=== PATIENT | female | born 1985 | race Caucasian/White ===

== ENCOUNTER 2022-04-15 07:22 | Outpatient (CLI) | payer OTHER, SELFPAY ==
--- NOTE | 2022-04-15 07:15 | CRLHL7_ITS ---
For Patients: As a result of the Cures Act, medical imaging exams and procedure reports are released immediately into your electronic medical record. You may view this report before your referring provider. If you have questions, please contact your health care provider. INDICATION: First trimester scan, establish dates. COMPARISON: None. TECHNIQUE: Real-time esqueda-scale imaging of the pelvis was performed. FINDINGS: Sonographic imaging demonstrates a single living intrauterine gestation. The embryo demonstrates a regular cardiac rate measuring 152 beats per minute. The embryo`s crown-rump length measurement of 5.2 cm corresponds to a gestational age of 11 weeks 6 days with a sonographic due date of 10/29/2022. There is a normal-appearing yolk sac. There are no gross abnormalities noted within the embryo at this early state of development. The gestational sac has a normal appearance. There is no evidence of a perigestational hemorrhage. The amount of fluid within the sac appears appropriate for gestational age. The cervix is closed. The myometrium appears normal. The ovaries are of normal size. Corpus luteal cyst on the right. There are no suspicious fluid collections noted in the cul-de-sac. IMPRESSION: Normal first trimester OB ultrasound exam. Gestational age calculated at 11 weeks 6 days with a sonographic due date of 10/29/2022. Dictated by Krzysztof Flanagan MD @ 04/15/2022 9:39:00 AM (Electronically Signed)
== END 2022-04-15 07:23 | disposition home or self-care (01) ==
PROVIDERS: Visit Provider Registered Nurse
DX: O09.521 Supervision of elderly multigravida, first trimester (principal); Z3A.11 11 weeks gestation of pregnancy
CPT/HCPCS: 76801; 82565; 82570; 84156; 84450; 84460; 84520; 86592; 86703; 86762; 86787; 86803; 86850; 86900; 86901; 87086; 87340; 87491; 87591

== ENCOUNTER 2022-06-10 13:26 | Outpatient (CLI) | payer OTHER, SELFPAY | END 2022-06-10 13:27 | disposition home or self-care (01) | LOC: US 13:26 | PROVIDERS: Visit Provider Pediatrics Neonatal-Perinatal Medicine | DX: O09.522 Supervision of elderly multigravida, second trimester (principal); Z3A.19 19 weeks gestation of pregnancy | CPT/HCPCS: 76811 ==

== ENCOUNTER 2022-07-01 14:15 | Outpatient (CLI) | payer OTHER, SELFPAY | END 2022-07-01 14:16 | disposition home or self-care (01) | LOC: FRMREF 14:15 | PROVIDERS: Visit Provider Advanced Practice Midwife | DX: Z34.92 Encounter for supervision of normal pregnancy, unspecified, second trimester (principal); Z3A.22 22 weeks gestation of pregnancy | CPT/HCPCS: 87086 ==

== ENCOUNTER 2022-08-06 10:35 | Outpatient (CLI) | payer OTHER, SELFPAY | END 2022-08-06 10:36 | disposition home or self-care (01) | LOC: NFLDREF 08-08 03:42 | PROVIDERS: PCP Registered Nurse; Referring Provider Registered Nurse; Visit Provider Registered Nurse | DX: O24.419 Gestational diabetes mellitus in pregnancy, unspecified control (principal); Z3A.28 28 weeks gestation of pregnancy | CPT/HCPCS: 86592 ==

== ENCOUNTER 2022-10-02 08:08 | Outpatient (CLI) | payer OTHER, SELFPAY ==
--- NOTE | 2022-10-02 08:15 | CRLHL7_ITS ---
For Patients: As a result of the Century Cures Act, medical imaging exams and procedure reports are released immediately into your electronic medical record. You may view this report before your referring provider. If you have questions, please contact your health care provider. INDICATION: Gestational diabetes TECHNIQUE: Real time esqueda scale imaging of the fetus was performed. COMPARISON: 09/03/2022 FINDINGS: Sonographic imaging demonstrates a single living intrauterine gestation. Fetus demonstrates a regular cardiac rate of 122 beats per minute. Fetus has a vertex position. The placenta lies anteriorly. Amniotic fluid volume appears normal and there is a single deepest pocket of 6.4 cm. The estimated weight is 3297gm which lies at the 90th %. On the prior OB ultrasound dated 09/03/2022 the estimated weight was at the 83rd percentile. The right renal pelvis measures 8 millimeters. BPD 89th percentile. HC 90th percentile. AC 95th percentile. FL 60th percentile. The fetus was active and demonstrated normal breathing movements. There was normal flexion and extension of the trunk and extremities. IMPRESSION: Normal biophysical profile score 8/8. Sonographic gestational age 37 weeks 6 days and sonographic due date 10/17/2022. Sonographic age 12 days ahead of the clinical age. Estimated weight 90th percentile. Abdominal circumference 95th percentile. Right renal pelviectasis measuring 8 millimeters. Less than 7 mm is considered normal in the 3rd trimester. follow-up recommended. Dictated by Krzysztof Flanagan MD @ 10/03/2022 6:25:05 AM (Electronically Signed)
== END 2022-10-02 08:09 | disposition home or self-care (01) ==
LOC: US 08:09
PROVIDERS: PCP Registered Nurse; Visit Provider Obstetrics & Gynecology
DX: O24.419 Gestational diabetes mellitus in pregnancy, unspecified control (principal); Z3A.37 37 weeks gestation of pregnancy
CPT/HCPCS: 76816; 76819; 87081; 87653

== ENCOUNTER 2022-10-07 09:18 | Outpatient (CLI) | payer OTHER, SELFPAY ==
[2022-10-07] VITALS (8 sets, daily range): BP systolic 132–152; BP diastolic 70–84; PULSE 75–84
[2022-10-07 09:57] LABS: Hematocrit 34.6 % (33.0-51.0); Hemoglobin* 11.3 gm/dL (12.0-16.0); Mean Corpuscular HGB Conc 33 gm/dL (32-36); Mean Corpuscular Hemoglobin 29 pg (26-34); Mean Corpuscular Volume 89 fL (80-100); Platelet Count* 197 K/uL (140-440); White Blood Count* 6.25 K/uL (4.50-11.00)
[2022-10-07 10:00] LABS: Slide Review Reflex No
[2022-10-07 10:27] LABS: Alanine Aminotransferase* 16 U/L (4-35); Aspartate Amino Transferase* 20 U/L (12-35); Blood Urea Nitrogen* 10 mg/dL (5-24); Creatinine* 0.5 mg/dL (0.5-1.5); Estimated Glomerular Filt Rate 124 ml/min
[2022-10-07 12:19] LABS: Total Protein Urine 12 mg/dL
[2022-10-07 12:20] LABS: Creatinine Urine 102.8 mg/dL
--- NOTE | 2022-10-07 15:16 | PC.OBNST ---
NST Note NST Note Start: 10/07/22 09:25 Freq: ONCE Status: Active Protocol: Document 10/07/22 11:50 IKE (Rec: 10/07/22 15:16 IKE [id number]) NST Note 5 Para (# of births) 4 EDC 10/29/22 Gestational Age In Weeks & Days 36 Weeks & 6 Days High Risk Factors High Blood Pressure - Gestational,Diabetes - Gestational Diet Controlled, Advanced Maternal Age Patient Presented with Complaint(s) of Other Other Complaints Elevated BP in clinic Reactive Yes Appropriate for Gestational Age Yes Adam Ken RN Date 10/07/22 Reactive Yes Appropriate for Gestational Age Yes Arian Horton RNC Date 10/07/22 OB NST charge Yes Complete NST Note via Write Note Yes The provider's electronic signature indicates the NST is reactive/appropriate for gestational age. *Note to provider: If an addendum is required, open the patient's chart and click on the note under the Nurse/Allied Health tab.
== END 2022-10-07 12:10 | disposition home or self-care (01) ==
LOC: OB OUT 09:19 → OB 09:21
PROVIDERS: PCP Registered Nurse; Visit Provider Obstetrics & Gynecology
DX: O13.3 Gestational [pregnancy-induced] hypertension without significant proteinuria, third trimester (principal); O24.419 Gestational diabetes mellitus in pregnancy, unspecified control; Z3A.36 36 weeks gestation of pregnancy
CPT/HCPCS: 36415; 59025; 76815; 82565; 82570; 84156; 84450; 84460; 84520; 85027; 99213

== ENCOUNTER 2022-10-07 19:15 | Inpatient (IN) | payer OTHER, SELFPAY ==
[2022-10-07 19:30] VITALS: RESP 16; TEMP 36.9
[2022-10-07 19:31] VITALS: BP 134/76; PULSE 82
--- NOTE | 2022-10-07 19:32 | PM.OBHPLI ---
OB - H&P: HPI Labor/Induction History of Present Illness Date Seen: 10/07/22 Chief Complaint: Gestational hypertension without severe features, unfavorable cervix, 36 6/7 weeks gestation. Chief complaint: IOL/HTN : 5 Para: 4 Indications for induction: induced hypertension Narrative: The patient is a 37 year old 5 para 4004 at 36 6/7 weeks gestation by early ultrasound, who presents for cervical ripening and labor induction secondary to gestational hypertension without severe features. She was seen in the [facility] today and found to have elevated blood pressure. This is her 2nd documented visit with significantly elevated blood pressure. She was sent to the center for monitoring and laboratory evaluations. Labs were normal. Blood pressure was elevated again. NST was reactive and reassuring. Her Joshua score was found to be unfavorable, so cervical ripening was recommended, with induction of labor to follow tomorrow. Induction of labor methods and cervical ripening methods were reviewed. The patient expressed a preference to do vaginal misoprostol tonight. OB PROBLEM LIST: EMANUEL : Rodney. Children (4 boys): Jt Blake, Rylan Hernandez and Ramone. Baby: Vesta gender. Conceived while on OCPs 1. AMA MaterniT 21: Negative Level 2 FAS: Normal. 2. H/o pre E Recommended daily baby aspirin starting at 12 weeks Baseline preeclampsia labs: P/C 0.00, Creat 0.4 (L), AST 18, ALT 16, BUN 10 Repeat labs on 09/17: hgb 11.7, plts 209, creat 0.4, BUN 11, AST 21, ALT 16. Urine P/C: 0.00. Labs 09/23/2022: hgb 11.9, plts 219, creat 0.4, BUN 9, AST 20, ALT 16. Urine P/C 0.3. 24hr protein: 259mg 3. H/o GDMA1 and GDMA1 in this see #7. Hemoglobin A1c: 5.3 Discussed recommendation for early glucose testing at 16-20 weeks. Patient did blood sugar testing and followed a GDM diet rather that doing an early 1hr GTT. Discussed checking for 1-2 weeks at 20 weeks and (if she passes) checking again at 28 weeks. Declined health economist referral. 4. Anxiety H/o PP anxiety after last baby was born. On 50mg Sertraline at her first visit. Increased to 75mg QD at her first visit. Increased to 100mg QD at 23 weeks. Patient increased to 150mg prior to 28 week visit. 5. Obesity. BMI 37.0 Weekly NST starting at 37wks 6. Migraine w/o aura 7. Gestational diabetes: diet controlled. Blood sugars reviewed at 23 weeks, elevated with high carb meals, agrees to diagnosis. USN for EFW q4 weeks 32 wks 09/03/22: Vtx, SDP: 7.2cm. EFW 2188 g, 4 lb 13 oz, 83%. BPD 80%, HC 78%, AC 91%, FL 47% 36 wks (& BPP due to BMI 37.0): Vertex, SDP 6.4cm. BPP /. EFW 3297g, 7lb 4 oz, 90%. BPD 89%, HC 90%, AC 95%, FL 60% Recommend delivery between 39.0- 40.6. 8. ED visit due to sudden onset SOB of September 15. EKG reassuring, elevated D-dimer, CT scan showed no PE, lower extremity Dopplers showed no DVT. Flu: completed Covid: completed and boosted x1; rec. bivalent booster History of Present Dating criteria: based on 1st trimester US only care: good care Ultrasounds: normal 1st trimester US and normal mid trimester US complications: gestational diabetes and gestational hypertension Medical complications: psychiatric (Anxiety) Labs Blood type: O (+) positive Rubella: immune RPR/VDLR: nonreactive GBS status: negative HBsAG: negative Review of Systems Status of ROS: Reports: 10 or more systems reviewed and unremarkable except as noted in History and below Meds Home Medications and Allergies Home Medications Medication Instructions Recorded Confirmed Type docosahexaenoic acid 200 mg mg PO 04/15/22 10/07/22 History capsule ( DHA) aspirin 81 mg tablet,delayed 81 mg PO QDAY 09/23/22 10/07/22 History release Allergies Allergy/AdvReac Type Severity Reaction Status Date / Time No Known Drug Allergies Allergy Verified 10/07/22 08:41 OB - H&P: Exam Physical Exam: Vital signs: Pulse BP 82 134/76 10/07/22 19:31 10/07/22 19:31 Narrative: See exam documented during clinic visit [facility] the [facility] today, 10/07/2022. Detailed Labor and Delivery Exam: Dilation (cm): 1 Effacement (%): 50 Cervix position: posterior Consistency: soft Fetus (Single): Station: -4 Heart Rate Baseline: 120 Monitor Decelerations: None Hourly Shift Variability: Moderate (6-25) OB - Problem Based A/P Additional Plan (1) Gestational hypertension: Problem details: Without severe features Status: Acute (2) Gestational diabetes: Status: Acute Delivery/Labor/Induction Plan Induction method: per misoprostol protocol (Vaginal misoprostol)
[2022-10-07 19:39] VITALS: BMI 40.0
[2022-10-07] MEDS: ACETAMINOPHEN 500 MG TABLET 1000 MG PO (20:40)
[2022-10-07] MEDS: miSOPROStoL 25 MCG/0.25 TABLET VAGINAL ×2 (20:50→23:55)
[2022-10-07 21:06] VITALS: BP 120/68; PULSE 74
[2022-10-07 21:07] VITALS: RESP 16
[2022-10-08] VITALS (44 sets, daily range): BP systolic 108–142; BP diastolic 55–86; PULSE 60–90; RESP 15–16; TEMP 36.6–37.1; O2SAT 98–99
[2022-10-08] MEDS: ACETAMINOPHEN 500 MG TABLET 1000 MG PO ×2 (03:38→23:35)
[2022-10-08] MEDS: miSOPROStoL 25 MCG/0.25 TABLET VAGINAL ×2 (04:35→07:39)
[2022-10-08] MEDS: LACTATED RINGERS 1000 ML 1,000 ML 999 ML IV (12:22)
[2022-10-08] MEDS: ROPIVACAINE 0.2 % PF 10 ML INJ 20 MG EPIDURAL (12:48)
[2022-10-08] MEDS: ROPIVACAINE 0.2% 100 ml 100 ML 12 MG EPIDURAL (12:48)
--- NOTE | 2022-10-08 12:59 | P.ANBPRC_ITS ---
[facility] Medical History Mild episode of recurrent major depressive disorder ?F33.0 - Major depressive disorder, recurrent, mild (ICD-10) Migraine ?G43.909 - Migraine, unspecified, not intractable, without status migrainosus (ICD-10) History of pre-eclampsia ?Z87.59 - Personal history of other complications of , childbirth and the puerperium (ICD-10) History of gestational hypertension ?Z87.59 - Personal history of other complications of , childbirth and the puerperium (ICD-10) History of gestational diabetes mellitus (GDM) ?Z86.32 - Personal history of gestational diabetes (ICD-10) Surgical History History of tonsillectomy ?Z90.89 - Acquired absence of other organs (ICD-10) History of cholecystectomy ?Z90.49 - Acquired absence of other specified parts of digestive tract (ICD- 10) History of appendectomy ?Z90.49 - Acquired absence of other specified parts of digestive tract (ICD- 10) Family History Maternal Grandmother Thyroid disease Breast cancer Osteoporosis Aunt Thyroid disease Mother Osteoporosis Other Family history of lactose intolerance Social History Narrative: Nonsmoker. No illicit drug use. No EtOH. What is your current living situation: I presently have a place to live Problems where you live: no known problems In the past 12 months, utilities in danger of being shut off: no In the past 12 mos, have been you worried that your food would run out before you had money to buy more?: never true In the past 12 mos, the food you bought just didn't last and you didn't have money to buy more?: never true Smoking Status: Never smoker Non-prescribed substance use: denies use How often does anyone, including family, friends and others, physically hurt you : How often does anyone, including family, friends and others, insult or talk down to you: How often does anyone, including family, friends and others, threaten you with harm: How often does anyone, including family, friends and others, scream or curse at you: Little interest or pleasure in doing things: not at all Feeling down, depressed, or hopeless: not at all Meds Home Medications and Allergies Home Medications Medication Instructions Recorded Confirmed Type docosahexaenoic acid 200 mg 200 mg PO DAILY 04/15/22 10/07/22 History capsule ( DHA) aspirin 81 mg tablet,delayed 81 mg PO QDAY 09/23/22 10/07/22 History release Allergies Allergy/AdvReac Type Severity Reaction Status Date / Time No Known Drug Allergies Allergy Verified 10/07/22 08:41 Results Labs Labs: Laboratory Results - last 24 hr 10/07/22 22:10 WBC Cancelled Corrected WBC Cancelled RBC Cancelled Hgb Cancelled Hct Cancelled MCV Cancelled MCH Cancelled MCHC Cancelled RDW Coeff of Radha Cancelled Plt Count Cancelled Neut % (Auto) Cancelled Lymph % (Auto) Cancelled Baldwin % (Auto) Cancelled Eos % (Auto) Cancelled Baso % (Auto) Cancelled Neut # (Auto) Cancelled Lymph # (Auto) Cancelled Baldwin # (Auto) Cancelled Eos # (Auto) Cancelled Baso # (Auto) Cancelled Blood Type O Positive Antibody Screen NEGATIVE Vital Signs Vital Signs: Last Vital Signs Temp 98.7 F 10/08/22 09:45 Pulse 86 10/08/22 12:57 Resp 16 10/08/22 09:45 BP 137/74 10/08/22 12:57 Pulse Ox 99 10/08/22 12:47 Weight: 115.984 kg Height: 170.18 cm Anesthesia Procedures Epidural Insertion Patient Location: OB Start Time: 12:30 Stop Time: 13:30 Start Date: 10/08/22 Stop Date: 10/08/22 Reason for Block: procedure for pain Patient Position: sitting Performed By: Thony Merritt Preanesthetic Checklist: IV checked, risks and benefits discussed, monitors and equipment checked and anesthesia consent Prep: chlorhexidine gluconate Monitoring: blood pressure monitoring, continuous pulse oximetry and heart rate Approach: midline Vertebral Space: lumbar (1-5) Epidural Technique: HUYEN saline Needle Type: Tuohy needle Injection Technique: continuous catheter Needle gauge: 17 Needle Insertion Depth (cm): 10 Catheter Gauge: 19 Catheter Type: multi-orifice Catheter at skin depth (cm): 14 Test Dose Result: negative and lidocaine 1.5% with epinephrine 1 to 200,000
[2022-10-08] MEDS: LACTATED RINGERS 1000 ML 1,000 ML 125 ML IV (13:27)
[2022-10-08] MEDS: OXYTOCIN 30 unit/500 ML in NS 30 UNIT/500 ML BAG 300 UNIT IVPB (15:15)
--- NOTE | 2022-10-08 17:13 | W.PM.OBVAGDE ---
OB Procedure Vag Delivery Mother Details Mother Details: The patient is a 37 year-old, 5, Para 5, admitted on 10/07/22 at 37.0Days gestation for IOL due to GHTN. : 5 Para: 5 Weeks Gestation: 37.0 Admission Date: 10/07/22 Additional Details Amniotic Membrane Status: AROM Amniotic Membrane Rupture Date: 10/08/22 Amniotic Membrane Rupture Time: 12:10 Amniotic Membrane Fluid Description: Clear Analgesia/Anesthesia Type: Epidural Waterbirth: No Pitcoin: No Intrapartal Events: Labor Induction Induction Method: per misoprostol protocol Delivery augmentation: rupture of membranes Labor Onset: 08:00 Complete: 14:55 Pushin:58 Heart: heart tones during second stage were category 2. Delivery Details Delivery Date: 10/08/22 Delivery Time: 15:18 Route of delivery: Gender: Male Infant Viability: Alive; Heart Rate Present Position at Delivery: OA Delivery Details: Delivered over intact perineum via spontaneous vaginal delivery. was placed on maternal abdomen.? Cord was clamped and cut after a 30-60 second delay. Nose and mouth were bulb suctioned.? weight 6 lb 6 oz. 1 Minute Interval Total Score: 8 5 Minute Interval Total Score: 8 Additional Details Shoulder Dystocia: No Placenta Delivery Time: 15:24 Placental Delivery Description: Spontaneous Delivery repair: Vicryl Procedure Done: Global Blood Loss: 50 Laceration: Perineal - 1st Degree Episiotomy Description: None Blood Loss Measurement Type: QBL Bakri Used: No Sponge/Need Count Correct: No Cord Vessel Description: 3 Vessels, Nuchal Cord and Reduced Event Summary Status: Mother and infant were stable after delivery. Disposition: floor
[2022-10-08] MEDS: IBUPROFEN 600 MG TABLET PO (20:33)
[2022-10-09] VITALS (7 sets, daily range): BP systolic 122–142; BP diastolic 77–86; PULSE 62–84; RESP 16–18; TEMP 36.3–36.9; O2SAT 95–98
[2022-10-09] MEDS: IBUPROFEN 600 MG TABLET PO ×2 (02:36→17:18)
[2022-10-09] MEDS: DOCUSATE SODIUM 100 MG CAPSULE PO ×2 (02:36→11:03)
[2022-10-09 06:36] LABS: Hemoglobin* 10.4 gm/dL (12.0-16.0)
--- NOTE | 2022-10-09 07:47 | PM.OBDSVD1 ---
DS: Providers Provider Time Seen by Provider: 07:47 Date Seen: 10/09/22 Date of admission: 10/07/22 19:15 Primary care physician: Smitha Herrmann CNP Admitting Clinician: Sharon Quan MD Attending Physician on discharge: Sharon Quan MD Date of Discharge: 10/09/22 DS: Diagnosis Discharge Diagnosis (1) NVD (normal vaginal delivery): Status: Acute (2) Lactating mother: Status: Acute (3) Gestational hypertension: Status: Acute Problem details: Without severe features (4) Gestational diabetes: Status: Acute (5) Anxiety and depression: Status: Acute Exam Narrative: Exam Narrative: VSS, afebrile GENERAL APPEARANCE: ?normal affect, alert, no distress MOOD: ?appropriate HEENT: normocephalic, neck supple, full ROM CHEST: ?Symmetrical chest wall movement. ?Normal respiratory effort. ?Clear to auscultation HEART: ?regular rate and rhythm ABDOMEN: ?soft, non-tender. Uterine fundus is firm, 1 below Umbilicus, Midline and is appropriate for the stage of recovery. ?Bowel sounds present. PERINEUM: ?mild edema of the perineum, there is a 1st degree laceration that is healing well. EXTREMITIES: ?normal and +1 edema Const: Vital Signs, click to edit/add: Vital Signs - 24 hr 10/08/22 09:45 10/08/22 11:05 10/08/22 12:37 Temperature 98.7 F Pulse Rate 68 Pulse Rate [Blood Pressure Cuff] Respiratory Rate 16 Blood Pressure 132/78 Blood Pressure [Le ft Arm] Pulse Oximetry 98 Oxygen Delivery Vt thod 10/08/22 12:42 10/08/22 12:45 10/08/22 12:47 Temperature Pulse Rate 75 81 Pulse Rate [Blood Pressure Cuff] Respiratory Rate Blood Pressure 139/69 139/69 Blood Pressure [Le ft Arm] Pulse Oximetry 98 99 Oxygen Delivery Vt thod 10/08/22 12:49 10/08/22 12:51 10/08/22 12:53 Temperature Pulse Rate 85 89 81 Pulse Rate [Blood Pressure Cuff] Respiratory Rate Blood Pressure 137/69 142/77 H 135/74 Blood Pressure [Le ft Arm] Pulse Oximetry Oxygen Delivery Vt thod 10/08/22 12:55 10/08/22 12:57 10/08/22 12:59 Temperature Pulse Rate 81 86 78 Pulse Rate [Blood Pressure Cuff] Respiratory Rate Blood Pressure 138/72 137/74 142/67 H Blood Pressure [Le ft Arm] Pulse Oximetry Oxygen Delivery Vt thod 10/08/22 13:01 10/08/22 13:03 10/08/22 13:05 Temperature Pulse Rate 79 81 83 Pulse Rate [Blood Pressure Cuff] Respiratory Rate Blood Pressure 138/64 138/65 136/64 Blood Pressure [Le ft Arm] Pulse Oximetry Oxygen Delivery Vt thod 10/08/22 13:07 10/08/22 13:09 10/08/22 13:11 Temperature Pulse Rate 74 79 74 Pulse Rate [Blood Pressure Cuff] Respiratory Rate Blood Pressure 136/65 134/64 126/62 Blood Pressure [Le ft Arm] Pulse Oximetry Oxygen Delivery Vt thod 10/08/22 13:13 10/08/22 13:15 10/08/22 13:17 Temperature Pulse Rate 76 84 76 Pulse Rate [Blood Pressure Cuff] Respiratory Rate Blood Pressure 130/69 134/68 136/71 Blood Pressure [Le ft Arm] P[facility]xim[facility] 13:19 10/08/22 13:21 10/08/22 13:23 Temperature Pulse Rate 75 78 79 Pulse Rate [Blood Pressure Cuff] Respiratory Rate Blood Pressure 132/65 129/72 121/57 L Blood Pressure [Le ft Arm] Pulse Oximetry [facility] 10[facility]08/[facility] 13:38 10/08/22 13:38 10/08/22 13:55 Temperature 98.3 F Pulse Rate 74 72 Pulse Rate [Blood Pressure Cuff] Respiratory Rate 16 Blood Pressure 122/60 124/60 Blood Pressure [Le ft Arm] Pulse Oximetry Oxygen Delivery Vt thod 10/08/22 14:00 10/08/22 14:09 10/08/22 14:24 Temperature 98.4 F Pulse Rate 77 72 Pulse Rate [Blood Pressure Cuff] Respiratory Rate 16 Blood Pressure 129/62 119/58 L Blood Pressure [Le ft Arm] Pulse Oximetry Oxygen Delivery Vt thod 10/08/22 14:39 10/08/22 14:47 10/08/22 15:27 Temperature 98.5 F Pulse Rate 72 Pulse Rate [Blood Pressure Cuff] 79 Respiratory Rate Blood Pressure 120/58 L Blood Pressure [Le ft Arm] 135/67 Pulse Oximetry 99 [facility] 10[facility]08/22 15:28 10/08/22 15:45 10/08/22 16:00 Temperature Pulse Rate 79 82 Pulse Rate [Blood Pressure Cuff] Respiratory Rate Blood Pressure 135/67 136/69 141/73 H Blood Pressure [Le ft Arm] Pulse Oximetry Oxygen Delivery Me thod 10/08/22 16:00 10/08/22 16:15 10/08/22 16:15 Temperature Pulse Rate 75 76 Pulse Rate [Blood Pressure Cuff] Respiratory Rate Blood Pressure 137/68 Blood Pressure [Le ft Arm] Pulse Oximetry Oxygen Delivery Me thod 10/08/22 16:30 10/08/22 16:30 10/08/22 16:45 Temperature Pulse Rate 84 Pulse Rate [Blood Pressure Cuff] Respiratory Rate Blood Pressure 126/60 126/60 Blood Pressure [Le ft Arm] Pulse Oximetry Oxygen Delivery Me thod 10/08/22 16:45 10/08/22 20:30 10/09/22 00:00 Temperature 98.0 F 98.3 F Pulse Rate 81 Pulse Rate [Blood Pressure Cuff] 90 84 Respiratory Rate 15 16 Blood Pressure Blood Pressure [Le ft Arm] 136/86 132/86 Pulse Oximetry 98 98 Oxygen Delivery Me thod Room Air Room Air 10/09/22 04:05 Temperature 97.7 F Pulse Rate Pulse Rate [Blood Pressure Cuff] 62 Respiratory Rate 16 Blood Pressure Blood Pressure [Le ft Arm] 123/78 Pulse Oximetry 95 Oxygen Delivery Me thod Room Air Documenting provider has reviewed patient's vital signs: yes OB - DS: Summary Hospital Course Hospital Course: Hoa is a y.o. G 5 P 5 who was admitted to [facility] for IOL for gestational hypertension. ?She had an uncomplicated NVD The patient feels well. ?The pain is well controlled with current medications. ?She has no new complaints. ?She is breast feeding and reports things are going ok.? the patient has done well.? Vitals have been stable.? She has remained afebrile.? Has a good appetite, is tolerating a general diet. ?She is voiding without difficulty.? She is passing gas and has not had a bowel movement.? She is ambulating and denies any dizziness.? Has Small amount of rubra lochia. She is planning partner vasectomy for prevention. Problems: none plan: Discharge home with baby. Follow up in 2 weeks and 6 weeks. , may follow up with if needed Acute mild anemia Gestational Hypertension -BPs WNL since delivery -Continue to monitor 1-2 times a day at home -Follow up in 3-5 days for a BP check Anxiety & depression -currently stable on sertraline -is aware if not doing well PP, we can increase dose or switch medication -reviewed option of therapy also if desired Peripartum Data Infant delivery method: Vaginal Laceration description: Perineal - 1st Degree complications: none Gender: Male Discharge Plan: Home Status at Discharge Functional status at discharge: independent ambulation Overall status at discharge: patient is progressing back to baseline Time Spent with Patient Time attestation: Total time spent providing and/or coordinating discharge services: Time spent: Less than 30 minutes Discharge Plan Discharge Disposition: Home, Self-Care Date of Admission: 10/07/22 19:15 Attending Provider on Discharge: Cindy Vega Primary Care Provider: Smitha Herrmann Condition: Stable Anticipated Discharge Date/Time: 10/09/22 18:53 Discharge Medications: New docusate sodium 100 mg Capsule 100 mg PO BID PRNQty: 100 0RF Rx Instructions: Take 1 cap 1-2 times a day as needed for constipation ibuprofen 600 mg Tablet 600 mg PO Q6H PRNQty: 60 0RF Continued DHA 200 mg capsule 200 mg PO DAILY sertraline 150 mg capsule 150 mg PO QDAY Qty: 90 0RF Discontinued aspirin 81 mg tablet,delayed release (DR/EC) 81 mg PO QDAY Discharge Orders: Discharge Order (Routine); Ordered 10/09/22 Ordered By: Cindy Vega Patient Education: OB Over the Counter Medication Information, OB Vaginal/Breast Feeding Additional Instructions: Follow up in 3-5 days for a blood pressure check. Can be a nurse visit. Continue to monitor blood pressures twice a day. Call for pressures 140/90 or higher. Call for symptoms of preeclampsia, including headache, vision changes or pain on the right side where your ribs end. Follow up in the clinic at 2 weeks and 6 weeks. Activity Level: Activity as Tolerated Discharge Diet: Regular Follow Up Appointments: Smitha Herrmann, SENIOR MECHANICAL TECHNICIAN [Primary Care Provider] - Forms: HOSTING Info Instructions
[2022-10-09] MEDS: SERTRALINE 100 MG TABLET 150 MG PO (22:32)
[2022-10-09] MEDS: ACETAMINOPHEN 500 MG TABLET 1000 MG PO (22:33)
[2022-10-10] MEDS: IBUPROFEN 600 MG TABLET PO ×2 (02:41→09:28)
[2022-10-10 04:09] VITALS: BP 119/73; PULSE 70; RESP 16; TEMP 36.8; O2SAT 99
[2022-10-10 09:22] VITALS: BP 129/84; PULSE 74; RESP 16; TEMP 36.7; O2SAT 97
--- NOTE | 2022-10-10 10:05 | PM.OBDSVD1 ---
DS: Providers Provider Date Seen: 10/10/22 Date of admission: 10/07/22 19:15 Primary care physician: Smitha Herrmann CNP Admitting Clinician: Sharon Quan MD Attending Physician on discharge: Loree Dennis MD Date of Discharge: 10/10/22 DS: Diagnosis Discharge Diagnosis (1) Lactating mother: Status: Acute (2) NVD (normal vaginal delivery): Status: Acute (3) Gestational hypertension: Status: Acute Problem details: Without severe features (4) Anxiety and depression: Status: Acute Exam Narrative: Exam Narrative: General: Pleasant, no acute distress Heart: Regular rate and rhythm, no murmur or gallop Lungs: Clear to auscultation bilaterally Abdomen: Soft, nontender, fundus well below umbilicus Lower extremities: No edema or erythema Const: Vital Signs, click to edit/add: Vital Signs - 24 hr 10/09/22 12:00 10/09/22 15:49 10/09/22 19:55 Temperature 98.5 F 97.9 F 97.4 F L Pulse Rate [Blood Pressure Cuff] 64 71 70 Respiratory Rate 16 16 18 Blood Pressure [Le ft Arm] 142/85 H 127/79 136/85 Pulse Oximetry 97 96 98 Oxygen Delivery Me thod Room Air Room Air Room Air 10/09/22 22:53 10/10/22 04:09 10/10/22 09:22 Temperature 98.4 F 98.3 F 98.1 F Pulse Rate [Blood Pressure Cuff] 70 70 74 Respiratory Rate 16 16 16 Blood Pressure [Le ft Arm] 122/77 119/73 129/84 Pulse Oximetry 98 99 97 Oxygen Delivery Me thod Room Air Room Air Room Air She has had only 1 elevated blood pressure in the last 24 hours. OB - DS: Summary Hospital Course Hospital Course: Hoa is a 37-year-old G5 now P5-0-0-5 who is status post normal spontaneous vaginal delivery on 10/08/2022 after induction of labor for gestational hypertension at 37 weeks gestation. She had a first-degree vaginal laceration. OB Problem List: 1. AMA MaterniT 21: Negative Level 2 FAS: Normal. 2. H/o pre E 3. GDMA1 4. Anxiety H/o PP anxiety after last baby was born. On 50mg Sertraline at her first visit. Increased to 75mg QD at her first visit. Increased to 100mg QD at 23 weeks. Patient increased to 150mg prior to 28 week visit. 5. Obesity. BMI 37.0 6. Migraine w/o aura 7. ED visit due to sudden onset SOB of September 15. EKG reassuring, elevated D-dimer, CT scan showed no PE, lower extremity Dopplers showed no DVT. She delivered a viable male . She is breast feeding. the patient has done well. Today, on day 2, she has no complaints. Her infant son is doing better with latch. She is ambulating without difficulty. Bleeding has stopped. Infant Gender: Male Infant Discharge Plan: Home Time Spent with Patient Time attestation: Total time spent providing and/or coordinating discharge services: Discharge Plan Discharge Disposition: Home, Self-Care Date of Admission: 10/07/22 19:15 Attending Provider on Discharge: Loree Dennis Primary Care Provider: Smitha Herrmann Condition: Stable Anticipated Discharge Date/Time: 10/09/22 18:53 Discharge Medications: New docusate sodium 100 mg Capsule 100 mg PO BID PRNQty: 100 0RF Rx Instructions: Take 1 cap 1-2 times a day as needed for constipation ibuprofen 600 mg Tablet 600 mg PO Q6H PRNQty: 60 0RF Continued DHA 200 mg capsule 200 mg PO DAILY sertraline 150 mg capsule 150 mg PO QDAY Qty: 90 0RF Discontinued aspirin 81 mg tablet,delayed release (DR/EC) 81 mg PO QDAY Discharge Orders: Discharge Order (Routine); Ordered 10/10/22 Ordered By: Loree Dennis Patient Education: OB Over the Counter Medication Information, OB Vaginal/Breast Feeding Additional Instructions: Follow up in 3-5 days for a blood pressure check. Can be a nurse visit. Continue to monitor blood pressures twice a day. Call for pressures 140/90 or higher. Call for symptoms of preeclampsia, including headache, vision changes or pain on the right side where your ribs end. Follow up in the clinic at 2 weeks and 6 weeks. Activity Level: Activity as Tolerated Discharge Diet: Regular Follow Up Appointments: Smitha Herrmann, [employer] [Primary Care Provider] - Forms: [employer] Info Instructions DS:Data Additional Comments Additional comments: Hemoglobin 10.4 on 10/09/2022
== END 2022-10-10 12:00 | disposition home or self-care (01) | DRG 806 ==
PROVIDERS: Obstetrics & Gynecology; Admitting Provider Obstetrics & Gynecology; PCP Registered Nurse; Visit Provider Obstetrics & Gynecology
DX: O13.4 Gestational [pregnancy-induced] hypertension without significant proteinuria, complicating childbirth (principal); D62 Acute posthemorrhagic anemia; Z37.0 Single live birth; O24.420 Gestational diabetes mellitus in childbirth, diet controlled; O99.214 Obesity complicating childbirth; E66.9 Obesity, unspecified; O70.0 First degree perineal laceration during delivery; O99.344 Other mental disorders complicating childbirth; F41.9 Anxiety disorder, unspecified; F32.A Depression, unspecified; O90.81 Anemia of the puerperium; Z3A.37 37 weeks gestation of pregnancy
CPT/HCPCS: 01967; 36415; 59200; 82962; 85018; 85025; 86850; 86900; 86901; 88307; A9270; J2370; J2795; J7120

== ENCOUNTER 2022-12-03 12:29 | Outpatient (CLI) | payer OTHER, SELFPAY | END 2022-12-03 12:30 | disposition home or self-care (01) | PROVIDERS: Visit Provider Registered Nurse | DX: Z39.2 Encounter for routine postpartum follow-up (principal) | CPT/HCPCS: 82565; 82570; 84156; 84450; 84460; 84520 ==

== ENCOUNTER 2022-12-28 03:56 | Emergency (ER) | payer OTHER, SELFPAY ==
[2022-12-28 04:00] VITALS: BP 158/89; PULSE 74; RESP 18; TEMP 36.8; O2SAT 99; BMI 34.5
--- NOTE | 2022-12-28 04:26 | ED_ITS ---
HPI - General Adult General Chief complaint: Allergic Reaction Stated complaint: allergic reaction Time Seen by Provider: 12/28/22 04:00 History of Present Illness HPI narrative: CC: Allergic Reaction, Generalized Rash pt. with rash that started at 1600. symptoms for 8 hours. denies shortness of breath, trouble breathing, swollen tongue. thinks she might be allergic to her wellbutrin. 37-year-old woman presenting to the emergency department with concern of allergic reaction specifically rash beginning around 8 hours ago. Very itchy. Unclear exposures. No known bite. She has restarted her Wellbutrin now about 2 weeks ago. Has a new baby she is nursing. Otherwise unknown exposure. She is feels like she is breathing through a straw somewhat. Feels like her tongue is swollen. No difficulty swallowing. Notes how swollen her hands are and the puffiness in her face as well. No history of reactive airway. Has not taken any treatment. Related Data Home Medications Medication Instructions Recorded Confirmed docosahexaenoic acid 200 mg 200 mg PO DAILY 04/15/22 12/28/22 capsule ( DHA) Previous Rx's Medication Instructions Recorded sertraline 100 mg tablet 150 mg (1.5 x 100 mg) PO DAILY 90 11/09/22 days #135 tabs bupropion HCl 100 mg tablet 100 mg PO BID #60 tabs 12/03/22 Allergies Allergy/AdvReac Type Severity Reaction Status Date / Time No Known Drug Allergies Allergy Verified 12/28/22 04:04 Review of Systems Status of ROS: Reports: 6 or more systems reviewed and unremarkable except as noted in History and below [facility] Medical History Gestational diabetes ?O24.419 - Gestational diabetes mellitus in , unspecified control (ICD-10) Mild episode of recurrent major depressive disorder ?F33.0 - Major depressive disorder, recurrent, mild (ICD-10) Migraine ?G43.909 - Migraine, unspecified, not intractable, without status migrainosus (ICD-10) History of pre-eclampsia ?Z87.59 - Personal history of other complications of , childbirth and the puerperium (ICD-10) History of gestational hypertension ?Z87.59 - Personal history of other complications of , childbirth and the puerperium (ICD-10) History of gestational diabetes mellitus (GDM) ?Z86.32 - Personal history of gestational diabetes (ICD-10) Surgical History History of tonsillectomy ?Z90.89 - Acquired absence of other organs (ICD-10) History of cholecystectomy ?Z90.49 - Acquired absence of other specified parts of digestive tract (ICD- 10) History of appendectomy ?Z90.49 - Acquired absence of other specified parts of digestive tract (ICD- 10) Family History Maternal Grandmother Thyroid disease Breast cancer Osteoporosis Aunt Thyroid disease Mother Osteoporosis Other Family history of lactose intolerance Social History Narrative: Nonsmoker. No illicit drug use. No EtOH. What is your current living situation?: I presently have a place to live Problems where you live: no known problems In the past 12 months, utilities in danger of being shut off: no In the past 12 mos, have been you worried that your food would run out before you had money to buy more?: never true In the past 12 mos, the food you bought just didn't last and you didn't have money to buy more?: never true Smoking Status: Never smoker Second hand tobacco smoke exposure: No How often do you have a drink containing alcohol: never How often do you have six or more drinks on one occasion: Never AUDIT-C Alcohol total score: 0 Non-prescribed substance use: denies use How often does anyone, including family, friends and others, physically hurt you : never How often does anyone, including family, friends and others, insult or talk down to you: never How often does anyone, including family, friends and others, threaten you with harm: never How often does anyone, including family, friends and others, scream or curse at you: never Little interest or pleasure in doing things: not at all Feeling down, depressed, or hopeless: not at all Exam Narrative: Exam Narrative: Very pleasant. Clearly little distressed. I can appreciate some puffiness in her face as described. He has no scleral icterus. Oropharynx is moist without erythema. I do not appreciate particular macroglossia. Neck is supple without LA. There is no stridor. Lungs are clear. She is breathing easily. Hands are with mild calor and generally moderately puffy. She has some urticarial eruptions over chest and inner thighs. Broadly erythematous and warm on both upper arms. No inoculation/envenomation site apparent. Const: Vital Signs, click to edit/add: Vital Signs - 24 hr 12/28/22 04:00 Temperature 98.2 F Pulse Rate [Right Pulse Oximeter] 74 Respiratory Rate 18 Blood Pressure [Ri ght Upper Arm] 158/89 H Pulse Oximetry 99 Oxygen Delivery Me thod Room Air Documenting provider has reviewed patient's vital signs: yes Course Vital Signs Vital signs: Initial Vital Signs Temperature 98.2 F 12/28/22 04:00 Temperature Source Temporal Artery Scan 12/28/22 04:00 Pulse Rate 74 12/28/22 04:00 Respiratory Rate 18 12/28/22 04:00 Respiratory Effort Normal, Spontaneous, Non-Labored 12/28/22 04:00 Respiratory Depth Normal 12/28/22 04:00 Blood Pressure 158/89 H 12/28/22 04:00 Blood Pressure Mean 112 H 12/28/22 04:00 Blood Pressure Position Sitting 12/28/22 04:00 Pulse Oximetry 99 12/28/22 04:00 Oxygen Delivery Method Room Air 12/28/22 04:00 Vital Signs Temperature 98.2 F 12/28/22 04:00 Pulse Rate 74 12/28/22 04:00 Respiratory Rate 18 12/28/22 04:00 Blood Pressure 158/89 H 12/28/22 04:00 Pulse Oximetry 99 12/28/22 04:00 Oxygen Delivery Method Room Air 12/28/22 04:00 Temperature 98.2 F 12/28/22 06:45 Pulse Rate 78 12/28/22 06:45 Respiratory Rate 18 12/28/22 06:45 Blood Pressure 132/74 12/28/22 06:45 Pulse Oximetry 99 12/28/22 06:24 Oxygen Delivery Method Room Air 12/28/22 06:24 Medical Decision Making MDM Narrative Medical decision making narrative: Does appear to be a generalized/anaphylactic reaction. I do not appreciate macroglossia but she does feel like there is some fullness of her tongue. Low threshold to initiate epinephrine. Will be starting IV fluids, diphenhydramine and steroid and close monitoring oximetry. Instructed to inform of any worsening symptoms. Will check basic labs assessing renal and liver function. Monitored for nearly 2 hours post treatment in the emergency department. With progressive check-ins increasingly less symptomatic. Redness has faded. Hands are less puffy tongue no longer feels swollen. She feels she can depart emergency department. I am not sure that I can say that Wellbutrin is the cause here. She does feel like she is doing better regarding depression and generally Wellbutrin has been helpful but is disinclined to continue it at this time. See patient discharge plan Lab Data Lab results reviewed: Yes I reviewed the patient's lab results Labs: Lab Results 12/28/22 Range/Units 04:50 WBC 8.23 (4.50-11.00) K/uL RBC 4.54 (4.00-5.20) m/uL Hgb 12.9 (12.0-16.0) gm/dL Hct 39.3 (33.0-51.0) % MCV 87 (80-100) fL MCH 28 (26-34) pg MCHC 33 (32-36) gm/dL RDW Coeff of Radha 13.6 (11.5-15.5) % Plt Count 212 (140-440) K/uL Neut % (Auto) 70.3 (42.0-72.0) % Lymph % (Auto) 22.5 (20-44) % [place] % (Auto) 5.2 (0.0-11.0) % Eos % (Auto) 1.7 (0.0-7.0) % Baso % (Auto) 0.1 (0.0-3.0) % Neut # (Auto) 5.78 (1.7-7.0) K/uL Lymph # (Auto) 1.85 (0.90-2.90) K/uL [place] # (Auto) 0.40 (0.00-0.90) K/UL Eos # (Auto) 0.14 (0.00-0.50) K/uL Baso # (Auto) 0.01 (0.00-0.30) K/uL Abs Immat Gran (auto) 0.02 (0.00-0.30) K/uL Imm/Tot Granulo (auto) 0.2 % Sodium 138 (135-149) mmol/L Potassium 3.7 (3.6-5.1) mmol/L Chloride 102 (96-114) mmol/L Carbon Dioxide 26 (20-32) mmol/L Anion Gap 10 (7-15) mEq/L BUN 22 (5-24) mg/dL Creatinine 0.8 (0.5-1.5) mg/dL Estimated Creat Clear 93.63 Estimated GFR 97 ml/min Glucose 163 H (60-115) mg/dL Calcium 9.8 (8.4-10.6) mg/dL Total Bilirubin 0.4 (0.1-1.5) mg/dL Direct Bilirubin 0.1 (0.0-0.5) mg/dL AST 33 (12-35) U/L ALT 32 (4-35) U/L Alkaline Phosphatase 86 (40-150) U/L C-Reactive Protein 1.5 H (0.5-1.0) mg/dL Total Protein 7.6 (6.0-8.3) g/dL Albumin 4.2 (3.3-5.0) g/dL Discharge Plan Discharge Clinical Impression: Allergic reaction, Urticaria, Anaphylaxis, depression Patient Disposition: Home, Self-Care Condition: Improved Additional Instructions: I understand you preference to discontinue Wellbutrin. I can not say that this is what contributed to this reaction but it is possible. It might be a little uncomfortable to abruptly discontinue but should not be unsafe medically speaking. Will need to reassess your psychological health, keep a close eye on things. Discuss further with your primary care provider please. Stay well-hydrated. Have prescribed prednisone from [facility] to take over the next 3 days. You can also take diphenhydramine 25-50 mg per dose for breakthrough itch or rash. If however you have any indication of throat tightening or further difficulty breathing, I would take diphenhydramine and present again to the emergency department. Prescriptions: No Action DHA 200 mg capsule 200 mg PO DAILY bupropion HCl 100 mg tablet 100 mg PO BID Qty: 60 2RF Rx Instructions: 100mg BID for x7 days, then increase to 100mg TID sertraline 100 mg tablet 150 mg PO DAILY 90 Days Qty: 135 1RF Follow Up/Referrals: Provider,Not a Local [Primary Care Provider] - Stand Alone Forms: [employer] Info Instructions
[2022-12-28 04:50] VITALS: O2SAT 99
[2022-12-28] MEDS: METHYLPREDNISOLONE SOD SUCC 62.5 MG/ML (125) 93.75 MG IVP (04:53)
[2022-12-28] MEDS: 0.9 % SODIUM CHLORIDE 1000 ml 1,000 ML 2000 ML IV (04:53)
[2022-12-28] MEDS: diphenhydrAMINE 50 MG/ML inj 25 MG IVP (04:53)
[2022-12-28 04:56] LABS: Basophils Absolute Auto 0.01 K/uL (0.00-0.30); Basophils Percent Auto 0.1 % (0.0-3.0); Eosinophils Absolute Auto 0.14 K/uL (0.00-0.50); Eosinophils Percent Auto 1.7 % (0.0-7.0); Hematocrit 39.3 % (33.0-51.0); Hemoglobin* 12.9 gm/dL (12.0-16.0); Immature Granulocytes Abs Auto 0.02 K/uL (0.00-0.30); Immature Granulocytes Pct Auto 0.2 %; Lymphocytes Absolute Auto 1.85 K/uL (0.90-2.90); Lymphocytes Percent Auto 22.5 % (20-44); Mean Corpuscular HGB Conc 33 gm/dL (32-36); Mean Corpuscular Hemoglobin 28 pg (26-34); Mean Corpuscular Volume 87 fL (80-100); Monocytes Percent Auto 5.2 % (0.0-11.0); Neutrophils Absolute Auto 5.78 K/uL (1.7-7.0); Neutrophils Percent Auto 70.3 % (42.0-72.0); Platelet Count* 212 K/uL (140-440); RDW Coefficient of Variation % 13.6 % (11.5-15.5); Red Blood Count 4.54 m/uL (4.00-5.20); Slide Review Reflex No; White Blood Count* 8.23 K/uL (4.50-11.00)
[2022-12-28 05:08] LABS: Chloride* 102 mmol/L (96-114)
[2022-12-28 05:09] LABS: Potassium* 3.7 mmol/L (3.6-5.1); Sodium* 138 mmol/L (135-149)
[2022-12-28 05:10] LABS: Albumin* 4.2 g/dL (3.3-5.0)
[2022-12-28 05:11] LABS: Creatinine* 0.8 mg/dL (0.5-1.5); Est. Creatinine Clearance* 93.63; Estimated Glomerular Filt Rate 97 ml/min
[2022-12-28 05:12] LABS: Anion Gap 10 mEq/L (7-15); Blood Urea Nitrogen* 22 mg/dL (5-24); Calcium* 9.8 mg/dL (8.4-10.6); Carbon Dioxide* 26 mmol/L (20-32); Glucose* 163 mg/dL (60-115)
[2022-12-28 05:13] LABS: Alanine Aminotransferase* 32 U/L (4-35); Alkaline Phosphatase* 86 U/L (40-150); Aspartate Amino Transferase* 33 U/L (12-35); Bilirubin Direct* 0.1 mg/dL (0.0-0.5); Bilirubin Total* 0.4 mg/dL (0.1-1.5); Total Protein* 7.6 g/dL (6.0-8.3)
[2022-12-28 05:15] LABS: C Reactive Protein* 1.5 mg/dL (0.5-1.0)
[2022-12-28 06:24] VITALS: BP 132/74; PULSE 78; RESP 18; TEMP 36.8; O2SAT 99
[2022-12-28 06:45] VITALS: BP 132/74; PULSE 78; RESP 18; TEMP 36.8
== END 2022-12-28 06:46 | disposition home or self-care (01) ==
PROVIDERS: Emergency Provider Family Medicine
DX: O99.345 Other mental disorders complicating the puerperium (principal); F53.0 Postpartum depression; L50.9 Urticaria, unspecified; T78.2XXA Anaphylactic shock, unspecified, initial encounter
CPT/HCPCS: 36415; 80048; 80076; 85025; 86140; 94761; 96361; 96374; 96375; 99284; J1200; J2930; J7030